=== PATIENT | female | born 1985 | race Caucasian/White ===

== ENCOUNTER → 2016-05-08 | Outpatient (CLI) | payer OTHER, BC ==
[~2016-05-08] MED LIST: ANUSOL HC30 GM PO; CILOXAN 5 ML5 M1 OT; CIPRO500 MG PO; CIPROFLOXACIN500 MG PO; HYDROCODONE BIT1 T11 PO; LAMICTAL100 MG PO; MOTRIN800 MG PO; NKHM; PEN-VEE K500 MG PO; PERCOCET 325 MG1 TA5 PO; PROZAC40 MG PO; VICODIN 5/500 505 MG PO; ZOFRAN4 MG PO
== END | disposition home or self-care (01) ==
LOC: LAB 07:30
DX: E28.2 Polycystic ovarian syndrome (principal); E03.9 Hypothyroidism, unspecified

== ENCOUNTER 2016-09-21 02:39 | Emergency (ER) | payer OTHER, BC ==
[~2016-09-21] VITALS: Ht 162 cm; Wt 122.5 kg
[2016-09-21 03:53] LABS: BASO % 0.3 % (0.0-1.0); EOS # 0.1 10*3/uL (0.0-0.4); EOS % 0.4 % (1.0-4.0); HEMATOCRIT 36.6 % (37.0-47.0); HEMOGLOBIN 11.2 g/dl (12.0-16.0); LYMPH # 2.1 10*3/uL (1.3-4.4); LYMPH % 16.6 % (27.0-41.0); MEAN CELL VOLUME 73.5 fl (81.0-99.0); MEAN CORPUSCULAR HGB 22.5 pg (27.0-31.0); MEAN CORPUSCULAR HGB CONC 30.6 g/dl (33.0-37.0); MEAN PLATELET VOLUME 9.7 fl (9.6-12.3); MONO # 0.5 10*3/uL (0.1-1.0); MONO % 3.9 % (3.0-9.0); NEUT # 10.1 10*3/uL (2.3-7.9); NEUT % 78.5 % (47.0-73.0); PLATELET COUNT AUTOMATED 370 10*3/uL (130-400); RED BLOOD COUNT 4.98 10*6/uL (4.10-5.10); RED CELL DISTRI WIDTH 17.4 % (0-14.5); WHITE BLOOD COUNT 12.9 10*3/uL (4.8-10.8)
[2016-09-21 04:05] LABS: BUN 10 mg/dl (7-24); CARBON DIOXIDE 25 mmol/L (21-32); CHLORIDE 104 mmol/L (98-107); EST GLOM FILT AFRICAN AMERICAN > 60 ml/min; GLUCOSE 146 mg/dL (65-99); POTASSIUM 3.4 mmol/L (3.5-5.1); SODIUM 140 mmol/L (136-145)
[2016-09-21 04:10] LABS: B-hCG (QUALITATIVE) NEGATIVE (NEGATIVE)
[2016-09-21] MEDS ORDERED: ZOFRAN ODT4 MG SL (05:30)
[2016-09-21] MEDS ORDERED: NORCO 5-325 TA1 EACH PO (05:30)
[2016-09-21] MEDS ORDERED: CEFUROXIME AXE250 MG PO (05:43)
[2016-09-21 06:14] LABS: BILIRUBIN NEGATIVE (NEGATIVE); BLOOD 3+ (NEGATIVE); CLARITY CLOUDY (CLEAR); COLOR YELLOW (YELLOW); GLUCOSE NEGATIVE (NEGATIVE); KETONE 1+ (NEGATIVE); LEUKO ESTERASE NEGATIVE (NEGATIVE); NITRITE NEGATIVE (NEGATIVE); PH 5.5 (5.0-9.0); PROTEIN 2+ (NEGATIVE); SPECIFIC GRAVITY >= 1.030 (1.005-1.030); UROBILINOGEN 0.2 E.U./dl (0.2-1.0)
[2016-09-21 06:30] LABS: BACTERIA 1+; CALCIUM OXALATE CRYSTALS 2+; RBC TNTC rbc/hpf (0-2)
[2016-09-21 06:31] LABS: URINE REFLEX COMMENT YES (NO)
== END 2016-09-21 06:24 | disposition home or self-care (01) ==
LOC: ED 02:39
PROVIDERS: Emergency Medicine Emergency Medical Services
DX: N23 Unspecified renal colic (principal); N20.1 Calculus of ureter; Z87.442 Personal history of urinary calculi; Z88.2 Allergy status to sulfonamides

== ENCOUNTER → 2016-10-18 | Outpatient (CLI) | payer OTHER, BC ==
[~2016-10-18] MED LIST changes: +CEFUROXIME AXE250 MG PO; +NORCO 5-325 TA1 EACH PO; +ZOFRAN ODT4 MG SL
== END | disposition home or self-care (01) ==
LOC: LAB 07:27
DX: E16.8 Other specified disorders of pancreatic internal secretion (principal)

== ENCOUNTER 2017-01-12 10:45 | Inpatient (IN) | payer OTHER, BC ==
[~2017-01-12] VITALS: Ht 154.9 cm; Wt 128.1 kg
[2017-01-12 10:51] VITALS: BP 165/94
[2017-01-12 11:19] LABS: BASO # 0.1 10*3/uL (0.0-0.1); BASO % 0.4 % (0.0-1.0); EOS # 0.1 10*3/uL (0.0-0.4); EOS % 0.4 % (1.0-4.0); HEMATOCRIT 31.4 % (37.0-47.0); HEMOGLOBIN 9.4 g/dl (12.0-16.0); LYMPH # 2.5 10*3/uL (1.3-4.4); LYMPH % 18.3 % (27.0-41.0); MEAN CELL VOLUME 69.5 fl (81.0-99.0); MEAN CORPUSCULAR HGB 20.8 pg (27.0-31.0); MEAN CORPUSCULAR HGB CONC 29.9 g/dl (33.0-37.0); MEAN PLATELET VOLUME 10.1 fl (9.6-12.3); MONO # 0.7 10*3/uL (0.1-1.0); MONO % 5.2 % (3.0-9.0); NEUT # 10.1 10*3/uL (2.3-7.9); NEUT % 75.3 % (47.0-73.0); PLATELET COUNT AUTOMATED 400 10*3/uL (130-400); RED BLOOD COUNT 4.52 10*6/uL (4.10-5.10); RED CELL DISTRI WIDTH 16.3 % (0-14.5); WHITE BLOOD COUNT 13.5 10*3/uL (4.8-10.8)
--- NOTE | 2017-01-12 11:30 | NUR ---
LA 2.4 A.BRITTANY NOTIFIED
[2017-01-12 11:35] LABS: ALBUMIN 3.3 gm/dl (3.1-4.5); BUN 6 mg/dl (7-24); CHLORIDE 102 mmol/L (98-107); CREATININE 0.93 mg/dL (0.55-1.02); POTASSIUM 4.1 mmol/L (3.5-5.1); SGOT/AST 24 IU/L (3-35); SGPT/ALT 13 U/L (12-78); SODIUM 137 mmol/L (136-145); TOTAL PROTEIN 7.6 gm/dL (6.4-8.2)
[2017-01-12 11:41] LABS: ALKALINE PHOSPHATASE 91 U/L (45-117)
[2017-01-12 12:27] VITALS: BP 166/74
[2017-01-12 12:40] VITALS: BP 160/64
[2017-01-12 12:42] VITALS: BP 165/94
[2017-01-12] MEDS ORDERED: NATURE'S BLEND F1 MG PO (12:48)
[2017-01-12] MEDS ORDERED: APRI 28 DAY TA1 EACH PO (12:48)
[2017-01-12] MEDS ORDERED: METFORMIN ER500 MG PO (12:48)
--- NOTE | 2017-01-12 12:49 | NUR ---
MED REC UPDATED BY CALLING PT PHARMACY AND VERIFYING WITH PATIENT.
--- NOTE | 2017-01-12 13:27 | NUR ---
A 31, admitted to , under the services of JOSE A Harrison DO with a diagnosis of PNUEMONIA. Chief complaint is SOB ON EXERTION. Patient arrived via stretcher from ER. Monitor applied. Initial assessment completed. Vital signs taken and recorded. JOSE A HARRISON DO notified of admission to the unit. Orders received. See assessment for past medical history, medications and allergies. Patient and/or family oriented to unit. [facility]. Clothing/patient valuable form completed. MICHAEL VICENTE
[2017-01-12 16:00] VITALS: BP 123/55
[2017-01-12 20:00] VITALS: BP 159/70
--- NOTE | 2017-01-12 21:21 | NUR ---
NOTIFIED OF PATIENT'S WISHES FOR DISCHARGE. PER , PATIENT WILL NOT BE DISCHARGED TONIGHT. ALSO NOTIFIED THAT ANTIBIOTICS ARE CURRENTLY NOT SCHEDULED TO BE ADMINISTERED UNTIL Monday01/14/17 AT 1200 AND 1300. INSTRUCTED TO RESCHEDULE ANTIBIOTICS TO START TOMORROW (MONDAY) 01/13/17 AT 1200 AND 1300.
--- NOTE | 2017-01-12 23:38 | NUR ---
PATIENT MEDICATED WITH PO RESTORIL PER PRN ORDER FOR C/O SLEEPLESSNESS. WILL MONITOR EFFECTIVENESS. CALL LIGHT LEFT IN REACH.
[2017-01-13] VITALS: BP 145/58
--- NOTE | 2017-01-13 00:12 | NUR ---
EARLIER MEDICATION APPEARS EFFECTIVE. PATIENT SLEEPING IN BED. RESPIRATIONS EASY. NO S/S OF DISTRESS NOTED. WILL MONITOR. CALL LIGHT LEFT IN REACH.
[2017-01-13 06:43] LABS: BASO % 0.1 % (0.0-1.0); HEMATOCRIT 28.4 % (37.0-47.0); HEMOGLOBIN 8.4 g/dl (12.0-16.0); LYMPH # 2.7 10*3/uL (1.3-4.4); LYMPH % 19.1 % (27.0-41.0); MEAN CELL VOLUME 70.8 fl (81.0-99.0); MEAN CORPUSCULAR HGB 20.9 pg (27.0-31.0); MEAN CORPUSCULAR HGB CONC 29.6 g/dl (33.0-37.0); MEAN PLATELET VOLUME 9.9 fl (9.6-12.3); MONO # 0.9 10*3/uL (0.1-1.0); MONO % 6.6 % (3.0-9.0); NEUT # 10.4 10*3/uL (2.3-7.9); NEUT % 73.5 % (47.0-73.0); PLATELET COUNT AUTOMATED 371 10*3/uL (130-400); RED BLOOD COUNT 4.01 10*6/uL (4.10-5.10); RED CELL DISTRI WIDTH 16.2 % (0-14.5); WHITE BLOOD COUNT 14.2 10*3/uL (4.8-10.8)
[2017-01-13 06:51] LABS: ACT PARTIAL THROMBO TIME 25.4 SECONDS (20.8-31.5); INTERNATIONAL NORM RATIO 1.1 (2.0-3.5)
[2017-01-13 07:10] LABS: BUN 6 mg/dl (7-24); CHLORIDE 109 mmol/L (98-107); CHOLESTEROL 184 mg/dL (<200); CREATININE 0.56 mg/dL (0.55-1.02); PHOSPHOROUS 2.5 mg/dL (2.5-4.9); POTASSIUM 3.6 mmol/L (3.5-5.1); SODIUM 141 mmol/L (136-145); TRIGLYCERIDES 167 mg/dl (<150); VLDL CHOLESTEROL 33 mg/dL (6-40)
[2017-01-13 07:19] LABS: HDL CHOLESTEROL 37 mg/dl (40-60); LDL CHOLESTEROL 114 mg/dL (9-159); THYROID STIM HORMONE (HS) 0.822 uIU/ml (0.358-4.75)
[2017-01-13 08:00] VITALS: BP 134/64
[2017-01-13 08:20] LABS: VITAMIN D, 25-HYDROXY 5.4 ng/mL (30-100)
[2017-01-13 12:00] VITALS: BP 176/82
[2017-01-13 16:00] VITALS: BP 152/82
[2017-01-13 20:00] VITALS: BP 172/93
--- NOTE | 2017-01-13 20:00 | NUR ---
PT GIVEN TYLENOL FOR PAIN. WILL CONTINUE TO MONITOR PT.
[2017-01-14] VITALS: BP 161/72
[2017-01-14 08:00] VITALS: BP 145/77
[2017-01-14 12:00] VITALS: BP 140/62
[2017-01-14] MEDS ORDERED: ZITHROMAX500 MG PO (12:48)
[2017-01-14] MEDS ORDERED: FEROSUL325 MG PO (12:48)
[2017-01-14] MEDS ORDERED: VITAMIN D-32000 UNI1 PO (12:48)
--- NOTE | 2017-01-14 16:00 | NUR ---
IV SITE FLUSHED PAST ANTIBIOTIC. IV REMOVED AND PT DC IN CARE OF SIGNIFICANT OTHER VIA AMBULATORY.
== END 2017-01-14 16:00 | disposition home or self-care (01) | DRG 871 ==
LOC: ED 10:45 → EDHOLD 11:57 → 5E 12:16
PROVIDERS: Internal Medicine Nephrology; Nurse Practitioner Family; ADMIT Internal Medicine
DX: A41.9 Sepsis, unspecified organism (principal); J18.1 Lobar pneumonia, unspecified organism; E87.2 Acidosis; Z68.43 Body mass index [BMI] 50.0-59.9, adult; R65.20 Severe sepsis without septic shock; F41.9 Anxiety disorder, unspecified; F32.9 Major depressive disorder, single episode, unspecified; D50.9 Iron deficiency anemia, unspecified; D72.810 Lymphocytopenia; E66.01 Morbid (severe) obesity due to excess calories; R73.9 Hyperglycemia, unspecified; Z90.710 Acquired absence of both cervix and uterus; Z87.442 Personal history of urinary calculi

== ENCOUNTER → 2017-05-23 | Outpatient (CLI) | payer OTHER, BC ==
[~2017-05-23] MED LIST changes: +APRI 28 DAY TA1 EACH PO; +FEROSUL325 MG PO; +METFORMIN ER500 MG PO; +NATURE'S BLEND F1 MG PO; +VITAMIN D-32000 UNI1 PO; +ZITHROMAX500 MG PO
== END | disposition home or self-care (01) ==
LOC: LAB 16:28
DX: Z51.81 Encounter for therapeutic drug level monitoring (principal); Z79.899 Other long term (current) drug therapy

== ENCOUNTER → 2019-08-19 | Outpatient (CLI) | payer OTHER, BC | END | disposition home or self-care (01) | LOC: LAB 11:26 | DX: Z32.00 Encounter for pregnancy test, result unknown (principal); Z32.01 Encounter for pregnancy test, result positive ==

== ENCOUNTER → 2019-08-21 | Outpatient (CLI) | payer OTHER, BC | END | disposition home or self-care (01) | LOC: LAB 07:31 | DX: Z32.01 Encounter for pregnancy test, result positive (principal) ==

== ENCOUNTER → 2019-11-14 | Outpatient (CLI) | payer OTHER, BC ==
[2019-11-14 15:02] LABS: IRON 40 ug/dL (50-170); TOTAL IRON BINDING CAPACITY 428 ug/dl (250-450)
== END | disposition home or self-care (01) ==
LOC: LAB 14:20
PROVIDERS: ATTEND Nurse Practitioner Women's Health
DX: Z34.02 Encounter for supervision of normal first pregnancy, second trimester (principal); Z3A.16 16 weeks gestation of pregnancy

== ENCOUNTER → 2019-11-21 | Outpatient (CLI) | payer OTHER, BC ==
[2019-11-22 06:12] LABS: HEP B CORE AB, IGM Negative (Negative); HEPATITIS B SURFACE AG Negative (Negative); HEPATITIS C VIRUS ANTIBODY <0.1 s/co (0.0-0.9)
== END | disposition home or self-care (01) ==
LOC: LAB 09:32
PROVIDERS: ATTEND Nurse Practitioner Women's Health
DX: O16.2 Unspecified maternal hypertension, second trimester (principal); O99.019 Anemia complicating pregnancy, unspecified trimester; O26.812 Pregnancy related exhaustion and fatigue, second trimester; Z3A.17 17 weeks gestation of pregnancy

== ENCOUNTER → 2019-11-23 | Outpatient (CLI) | payer OTHER, BC | END | disposition home or self-care (01) | LOC: LAB 09:35 | PROVIDERS: ATTEND Nurse Practitioner Women's Health | DX: O16.2 Unspecified maternal hypertension, second trimester (principal); Z3A.17 17 weeks gestation of pregnancy ==

== ENCOUNTER → 2019-12-02 | Outpatient (CLI) | payer OTHER, BC | END | disposition home or self-care (01) | LOC: LAB 10:05 | PROVIDERS: ATTEND Nurse Practitioner Women's Health | DX: Z34.02 Encounter for supervision of normal first pregnancy, second trimester (principal); R73.09 Other abnormal glucose; Z3A.18 18 weeks gestation of pregnancy ==

== ENCOUNTER → 2020-01-30 | Outpatient (CLI) | payer OTHER, BC | END | disposition home or self-care (01) | LOC: LAB 00:18 | PROVIDERS: ATTEND Obstetrics & Gynecology | DX: Z34.02 Encounter for supervision of normal first pregnancy, second trimester (principal); Z3A.26 26 weeks gestation of pregnancy ==

== ENCOUNTER → 2020-03-19 | Outpatient (CLI) | payer BC | END | disposition home or self-care (01) | LOC: US 10:30 | PROVIDERS: ATTEND Obstetrics & Gynecology | DX: Z34.03 Encounter for supervision of normal first pregnancy, third trimester (principal); Z3A.36 36 weeks gestation of pregnancy ==

== ENCOUNTER → 2020-03-27 | Outpatient (CLI) | payer BC | END | disposition home or self-care (01) | LOC: COVID19 13:08 | PROVIDERS: ATTEND Nurse Practitioner Women's Health | DX: Z34.03 Encounter for supervision of normal first pregnancy, third trimester (principal); Z3A.37 37 weeks gestation of pregnancy ==

== ENCOUNTER 2020-11-24 16:04 | Emergency (ER) | payer BC ==
[~2020-11-24] VITALS: Wt 145.1 kg
[2020-11-24] MEDS ORDERED: CYCLOBENZAPRINE5 M3 PO (19:11)
[2020-11-24] MEDS ORDERED: Motrin,Rufen800 MG PO (19:11)
== END 2020-11-24 19:16 | disposition home or self-care (01) ==
LOC: ED 16:04
DX: S16.1XXA Strain of muscle, fascia and tendon at neck level, initial encounter (principal); Z79.899 Other long term (current) drug therapy; Z88.2 Allergy status to sulfonamides; V43.52XA Car driver injured in collision with other type car in traffic accident, initial encounter; Y93.89 Activity, other specified; Y92.89 Other specified places as the place of occurrence of the external cause; Y99.8 Other external cause status